=== PATIENT | male | born 1955 ===

== ENCOUNTER 2023-02-05 16:33 | Emergency (ER) | payer MEDICARE ==
[~2023-02-05] VITALS: Ht 160 cm; Wt 69.1 kg
[2023-02-05 16:52] VITALS: TEMP 98.6
[2023-02-05] MEDS ORDERED: METF-1211 PO (16:57)
[2023-02-05] MEDS ORDERED: METF-446 PO (17:00)
[2023-02-05] MEDS ORDERED: HYDR12.56 PO (17:00)
[2023-02-05] MEDS ORDERED: OLME20TA68 PO (17:00)
[2023-02-05] MEDS ORDERED: LOSA-381 PO (17:00)
[2023-02-05] MEDS ORDERED: GLIM4 PO (17:00)
[2023-02-05] MEDS ORDERED: SITA50 PO (17:00)
[2023-02-05 17:11] LABS: GLUCOMETER DEV NAME(LOC) ERT.5; GLUCOSE,POINT OF CARE 415 MG/DL (70-110)
[2023-02-05 17:38] LABS: BASOPHILS % (AUTO) 0.8 % (0.0-2.0); EOSINOPHILS % (AUTO) 3.1 % (1.0-6.0); HEMATOCRIT 40.2 % (41-53); HEMOGLOBIN 13.4 g/dL (13.5-17.5); LYMPHOCYTES # (AUTO) 2.8 K/uL (1.0-4.8); MEAN CORPUSCULAR HEMOGLOBIN 28.1 pg (26.0-34.0); MEAN CORPUSCULAR HGB CONC 33.3 G/dL (31.0-37.0); MEAN CORPUSCULAR VOLUME 84 fL (80-100); MONOCYTES # (AUTO) 0.7 K/uL (0.1-1.0); MONOCYTES % (AUTO) 7.6 % (2.0-9.0); NEUTROPHILS # (AUTO) 4.9 K/uL (1.8-7.7); NEUTROPHILS % (AUTO) 56.5 % (40.0-70.0); PLATELET COUNT (AUTO) 277 K/uL (150-450); RED BLOOD CELL COUNT(AUTO) 4.76 MIL/uL (4.50-5.90); RED CELL DISTRIBUTION WIDTH 13.5 % (11.5-14.5); WHITE BLOOD COUNT (AUTO) 8.7 K/uL (4.5-11.0)
[2023-02-05] MEDS ORDERED: ACETAMINOPHEN 500 MG TABLET PO ONE (18:00)
[2023-02-05] MEDS ORDERED: KETOROLAC TROMETHAMINE 30 MG/ML VIAL IVP ONE (18:00)
[2023-02-05 18:01] LABS: ALBUMIN 3.8 g/dL (3.4-5.0); BILIRUBIN,TOTAL 0.3 mg/dL (0.1-1.0); CREATININE 1.48 mg/dL (0.60-1.30); POTASSIUM 4.4 mmol/L (3.5-5.1); TOTAL PROTEIN, SERUM 8.2 g/dL (6.4-8.2)
[2023-02-05] MEDS ORDERED: INSULIN REGULAR, HUMAN 100 UNITS/ML IVP ONE (19:15)
[2023-02-05] MEDS ORDERED: SODIUM CHLORIDE 0.9% 1,000 ML IV ONE (19:15)
[2023-02-05 20:35] LABS: APPEARANCE,URINE CLEAR (CLEAR); BILIRUBIN,URINE NEGATIVE (NEGATIVE); COLOR,URINE LIGHT YELLOW (YELLOW); GLUCOSE, URINE (UA) >=1000 mg/dL (NEGATIVE); KETONES,URINE NEGATIVE (NEGATIVE); LEUKOCYTE ESTERASE ,URINE NEGATIVE (NEGATIVE); NITRATE,URINE NEGATIVE (NEGATIVE); OCCULT BLOOD,URINE NEGATIVE (NEGATIVE); PH,URINE 5.5 (5.0-8.0); PROTEIN,URINE NEGATIVE (NEGATIVE); SPECIFIC GRAVITIY, URINE 1.025 (1.003-1.030); UROBILINOGEN,URINE <=1.0 mg/dL (<=1.0)
[2023-02-05 20:48] LABS: BACTERIA,URINE None Seen /HPF (None Seen); RBC,URINE None Seen /HPF (0-2); SQUAMOUS EPITHELIAL CELL,UR None Seen /LPF (None Seen); WBC,URINE None Seen /HPF (0-5)
[2023-02-05] MEDS ORDERED: SODIUM CHLORIDE 0.9% 100 ML ONE (20:53)
[2023-02-05] MEDS ORDERED: IOHEXOL 350 MG/ML 100 ML VIAL ONE (20:53)
[2023-02-05 21:16] VITALS: BP 127/63; PULSE 80; RESP 16
[2023-02-05 21:31] LABS: GLUCOMETER DEV NAME(LOC) ER.6; GLUCOSE,POINT OF CARE 213 MG/DL (70-110)
== END 2023-02-05 21:51 | disposition home or self-care (01) ==
LOC: EMS 16:33
DX: N50.82 Scrotal pain (principal); E11.65 Type 2 diabetes mellitus with hyperglycemia; I10 Essential (primary) hypertension
CPT/HCPCS: 99285; 74177; 96374; 96361; 96375; 80053; 81001; 82962; 83690; 85025; 36415; 76870; 87491; 87591; J1815; J1885; Q9967; J7030; J7050